=== PATIENT | male | born 1975 | race American Indian/Alaskan Native ===

== ENCOUNTER 2020-01-07 21:36 | Emergency (ER) | payer SELFPAY ==
[2020-01-07] MEDS ORDERED: ZIPRASIDONE MESYLATE 20 MG VIAL IM ONE ×2 (21:48)
[2020-01-07] MEDS ORDERED: SODIUM CHLORIDE 0.9% 1000 ML 1,000 ML IV ONE (21:49)
--- NOTE | 2020-01-07 21:50 | Emergency Department Report ---
<NADINE ZEE - Last Filed: 01/08/20 05:18> ED Psych HPI - General Chief Complaint: Altered Mental Status Stated Complaint: POSS DRUG OVERDOSE Time Seen by Provider: 01/07/20 21:42 Source: EMS Mode of arrival: Stretcher Limitations: No Limitations - History of Present Illness Initial Comments: 44-year-old male presents to the hospital with complaints of acute psychosis and methamphetamine abuse. Patient admits to swallowing methamphetamine today. Police Department responded to the home 8 times today due to calls from the patient. Patient was having paranoid delusions and hallucinations that people were trying to kill him and therefore was calling the police repeatedly. On the eighth call police called EMS to transport patient to the hospital. Patient is agitated, restless, having hallucinations. He is oriented x 3. He denies medical problems or prescribed medications. pt given Geodon 20mg IM shortly after triage due to amphetamine induced psychosis - Related Data Allergies Allergy/AdvReac Type Severity Reaction Status Date / Time No Known Allergies Allergy Verified 01/07/20 21:53 ED Review of Systems Comment: All other systems reviewed and negative ED Physical Exam - General Limitations: Altered Mental Status - Other Other exam information: General: Agitated Head: Atraumatic Eyes: normal appearance ENT: Moist mucous membranes Neck: Normal appearance, no midline tenderness Chest: Clear to auscultation bilaterally CV: Tachycardic regular rhythm Abdomen: Soft, normal bowel sounds, nontender, nondistended, no rebound or guarding Back: Normal inspection Extremity: Normal inspection, full range of motion Neuro: Alert O x 3, 5/5 upper lower extremity strength, speech clear, sensation grossly intact Psych: Agitated, psychotic Skin: No rash ED Course - Reevaluation(s) Reevaluation #1: 01/08/20 04:42 Patient is more calm in the ER after Geodon at this time. However, he is still having rapid speech and appears to still be having some hallucinations. Patient on continue psychiatric hold pending mental health evaluation in the morning. Patient is medically cleared for psychiatric admission ED Medical Decision Making - Lab Data Result diagrams: 01/07/20 22:07 01/08/20 04:46 Lab Results 01/07/20 01/07/20 01/07/20 Range/Units 22:07 22:07 22:07 WBC 7.5 (4.5-11.0) K/mm3 RBC 4.33 (3.65-5.03) M/mm3 Hgb 14.4 (11.8-15.2) gm/dl Hct 41.4 (35.5-45.6) % MCV 96 H (84-94) fl MCH 33 H (28-32) pg MCHC 35 H (32-34) % RDW 13.8 (13.2-15.2) % Plt Count 333 (140-440) K/mm3 Lymph % (Auto) 15.7 (13.4-35.0) % [place] % (Auto) 7.6 H (0.0-7.3) % Eos % (Auto) 2.0 (0.0-4.3) % Baso % (Auto) 0.9 (0.0-1.8) % Lymph # 1.2 (1.2-5.4) K/mm3 [place] # 0.6 (0.0-0.8) K/mm3 Eos # 0.2 (0.0-0.4) K/mm3 Baso # 0.1 (0.0-0.1) K/mm3 Seg Neutrophils % 73.8 H (40.0-70.0) % Seg Neutrophils # 5.5 (1.8-7.7) K/mm3 Sodium 137 (137-145) mmol/L Potassium 3.9 (3.6-5.0) mmol/L Chloride 99.4 (98-107) mmol/L Carbon Dioxide 14 L (22-30) mmol/L Anion Gap 28 mmol/L BUN 5 L (9-20) mg/dL Creatinine 0.9 (0.8-1.5) mg/dL Estimated GFR > 60 ml/min BUN/Creatinine Ratio 6 % Glucose 101 H (75-100) mg/dL Calcium 9.0 (8.4-10.2) mg/dL Total Creatine Kinase (55-170) units/L Urine Color (Yellow) Urine Turbidity (Clear) Urine pH (5.0-7.0) Ur Specific [place] (1.003-1.030) Urine Protein (Negative) mg/dL Urine Glucose (UA) (Negative) mg/dL Urine Ketones (Negative) mg/dL Urine Blood (Negative) Urine Nitrite (Negative) Urine Bilirubin (Negative) Urine Urobilinogen (<2.0) mg/dL Ur Leukocyte Esterase (Negative) Urine WBC (Auto) (0.0-6.0) /HPF Urine RBC (Auto) (0.0-6.0) /HPF Urine Mucus /HPF Salicylates < 0.3 L (2.8-20.0) mg/dL Urine Opiates Screen Urine Methadone Screen Acetaminophen (10.0-30.0) ug/mL Ur Barbiturates Screen Ur Phencyclidine Scrn Ur Amphetamines Screen U Benzodiazepines Scrn Urine Cocaine Screen U Marijuana (THC) Screen Drugs of Abuse Note Plasma/Serum Alcohol (0-0.07) % 01/07/20 01/07/20 01/07/20 Range/Units 22:07 22:07 22:07 WBC (4.5-11.0) K/mm3 RBC (3.65-5.03) M/mm3 Hgb (11.8-15.2) gm/dl Hct (35.5-45.6) % MCV (84-94) fl MCH (28-32) pg MCHC (32-34) % RDW (13.2-15.2) % Plt Count (140-440) K/mm3 Lymph % (Auto) (13.4-35.0) % [place] % (Auto) (0.0-7.3) % Eos % (Auto) (0.0-4.3) % Baso % (Auto) (0.0-1.8) % Lymph # (1.2-5.4) K/mm3 [place] # (0.0-0.8) K/mm3 Eos # (0.0-0.4) K/mm3 Baso # (0.0-0.1) K/mm3 Seg Neutrophils % (40.0-70.0) % Seg Neutrophils # (1.8-7.7) K/mm3 Sodium (137-145) mmol/L Potassium (3.6-5.0) mmol/L Chloride (98-107) mmol/L Carbon Dioxide (22-30) mmol/L Anion Gap mmol/L BUN (9-20) mg/dL Creatinine (0.8-1.5) mg/dL Estimated GFR ml/min BUN/Creatinine Ratio % Glucose (75-100) mg/dL Calcium (8.4-10.2) mg/dL Total Creatine Kinase 358 H (55-170) units/L Urine Color (Yellow) Urine Turbidity (Clear) Urine pH (5.0-7.0) Ur Specific [place] (1.003-1.030) Urine Protein (Negative) mg/dL Urine Glucose (UA) (Negative) mg/dL Urine Ketones (Negative) mg/dL Urine Blood (Negative) Urine Nitrite (Negative) Urine Bilirubin (Negative) Urine Urobilinogen (<2.0) mg/dL Ur Leukocyte Esterase (Negative) Urine WBC (Auto) (0.0-6.0) /HPF Urine RBC (Auto) (0.0-6.0) /HPF Urine Mucus /HPF Salicylates (2.8-20.0) mg/dL Urine Opiates Screen Urine Methadone Screen Acetaminophen < 5.0 L (10.0-30.0) ug/mL Ur Barbiturates Screen Ur Phencyclidine Scrn Ur Amphetamines Screen U Benzodiazepines Scrn Urine Cocaine Screen U Marijuana (THC) Screen Drugs of Abuse Note Plasma/Serum Alcohol 0.02 (0-0.07) % 01/07/20 01/07/20 01/08/20 Range/Units 22:26 22:26 04:46 WBC (4.5-11.0) K/mm3 RBC (3.65-5.03) M/mm3 Hgb (11.8-15.2) gm/dl Hct (35.5-45.6) % MCV (84-94) fl MCH (28-32) pg MCHC (32-34) % RDW (13.2-15.2) % Plt Count (140-440) K/mm3 Lymph % (Auto) (13.4-35.0) % [place] % (Auto) (0.0-7.3) % Eos % (Auto) (0.0-4.3) % Baso % (Auto) (0.0-1.8) % Lymph # (1.2-5.4) K/mm3 [place] # (0.0-0.8) K/mm3 Eos # (0.0-0.4) K/mm3 Baso # (0.0-0.1) K/mm3 Seg Neutrophils % (40.0-70.0) % Seg Neutrophils # (1.8-7.7) K/mm3 Sodium 139 (137-145) mmol/L Potassium 4.7 D (3.6-5.0) mmol/L Chloride 105.2 (98-107) mmol/L Carbon Dioxide 23 D (22-30) mmol/L Anion Gap 16 mmol/L BUN 5 L (9-20) mg/dL Creatinine 0.7 L (0.8-1.5) mg/dL Estimated GFR > 60 ml/min BUN/Creatinine Ratio 7 % Glucose 105 H (75-100) mg/dL Calcium 9.5 (8.4-10.2) mg/dL Total Creatine Kinase (55-170) units/L Urine Color Straw (Yellow) Urine Turbidity Clear (Clear) Urine pH 6.0 (5.0-7.0) Ur Specific [place] 1.006 (1.003-1.030) Urine Protein <15 mg/dl (Negative) mg/dL Urine Glucose (UA) Neg (Negative) mg/dL Urine Ketones Tr (Negative) mg/dL Urine Blood Neg (Negative) Urine Nitrite Neg (Negative) Urine Bilirubin Neg (Negative) Urine Urobilinogen < 2.0 (<2.0) mg/dL Ur Leukocyte Esterase Neg (Negative) Urine WBC (Auto) < 1.0 (0.0-6.0) /HPF Urine RBC (Auto) 2.0 (0.0-6.0) /HPF Urine Mucus Few /HPF Salicylates (2.8-20.0) mg/dL Urine Opiates Screen Presumptive negative Urine Methadone Screen Presumptive negative Acetaminophen (10.0-30.0) ug/mL Ur Barbiturates Screen Presumptive negative Ur Phencyclidine Scrn Presumptive negative Ur Amphetamines Screen Presumptive positive U Benzodiazepines Scrn Presumptive negative Urine Cocaine Screen Presumptive negative U Marijuana (THC) Screen Presumptive negative Drugs of Abuse Note Disclamer Plasma/Serum Alcohol (0-0.07) % - EKG Data -: EKG Interpreted by Wy EKG shows normal: sinus rhythm, QRS complexes (lvh), ST-T waves (no stemi) Rate: normal (72), tachycardia - Radiology Data Radiology results: report reviewed CHEST 1 VIEW 01/07/2020 9:08 PM INDICATION / CLINICAL INFORMATION: Medical Clearance Psych. COMPARISON: None available. FINDINGS: SUPPORT DEVICES: None. HEART / MEDIASTINUM: No significant abnormality. LUNGS / PLEURA: No significant pulmonary or pleural abnormality. No pneumothorax. ADDITIONAL FINDINGS: No significant additional findings. IMPRESSION: 1. No acute findings. - Medical Decision Making Patient presented with agitation, psychosis, paranoid delusions with methamphetamine use. Patient's vital signs and mental status have improved somewhat with Geodon however, he is still exhibiting psychotic symptoms but is more calm and cooperative. Mild anion gap acidosis noted on initial BMP improved with time and 1 L of IV fluids. Patient is medically clear for inpatient psychiatric admission or discharge if deemed medically stable by mental health providers. Pt on psych hold - Differential Diagnosis Substance abuse, psychosis Critical Care Time: No ED Disposition Clinical Impression: Amphetamine abuse, Medical clearance for psychiatric admission Psychosis Qualifiers: Psychosis type: unspecified psychosis type Qualified Code(s): F29 - Unspecified psychosis not due to a substance or known physiological condition Disposition: -01 TO HOME OR SELFCARE Is pt being admited?: No Does the pt Need Aspirin: No Condition: Stable Instructions: Methamphetamine Abuse (ED) Additional Instructions: Follow-up with your doctor or doctor/clinic provided. Return if symptoms worsen as indicated by your discharge instructions. Referrals: [facility] <CLEMENTINE ORR S - Last Filed: 01/09/20 06:11> ED Review of Systems ROS: Stated complaint: POSS DRUG OVERDOSE Other details as noted in HPI ED Course Vital Signs 01/07/20 01/07/20 01/07/20 21:44 21:45 21:46 Temperature 98.6 F Pulse Rate 120 H 118 H Respiratory 20 32 H 24 Rate Blood Pressure 165/88 161/91 Blood Pressure [Right] O2 Sat by Pulse 100 100 Oximetry 01/07/20 01/07/20 01/07/20 21:51 22:01 22:15 Temperature Pulse Rate 116 H 113 H 104 H Respiratory 25 H 28 H 23 Rate Blood Pressure 144/75 167/83 Blood Pressure 113/75 [Right] O2 Sat by Pulse 98 100 98 Oximetry 01/07/20 01/07/20 01/07/20 22:30 22:45 23:00 Temperature Pulse Rate 101 H 102 H 97 H Respiratory 25 H 19 18 Rate Blood Pressure 173/80 123/76 132/86 Blood Pressure [Right] O2 Sat by Pulse 97 94 93 Oximetry 01/07/20 01/07/20 01/07/20 23:15 23:30 23:45 Temperature Pulse Rate 126 H 103 H 95 H Respiratory 20 17 19 Rate Blood Pressure 144/108 120/82 112/74 Blood Pressure [Right] O2 Sat by Pulse 98 96 94 Oximetry 01/07/20 01/08/20 01/08/20 23:59 00:00 00:15 Temperature Pulse Rate 88 88 91 H Respiratory 20 19 17 Rate Blood Pressure 112/74 128/74 112/62 Blood Pressure [Right] O2 Sat by Pulse 94 94 Oximetry 01/08/20 01/08/20 01/08/20 00:30 00:45 01:00 Temperature Pulse Rate 97 H 88 90 Respiratory 17 20 19 Rate Blood Pressure 119/67 118/65 110/65 Blood Pressure [Right] O2 Sat by Pulse 92 94 92 Oximetry 01/08/20 01/08/20 01/08/20 01:15 01:30 01:45 Temperature Pulse Rate 94 H 87 85 Respiratory 18 17 18 Rate Blood Pressure 104/53 101/61 111/65 Blood Pressure [Right] O2 Sat by Pulse 90 94 Oximetry 01/08/20 01/08/20 01/08/20 02:15 02:30 02:45 Temperature Pulse Rate 90 92 H 116 H Respiratory 21 17 20 Rate Blood Pressure 120/66 129/68 115/75 Blood Pressure [Right] O2 Sat by Pulse 96 97 99 Oximetry 01/08/20 01/08/20 01/08/20 03:00 03:15 03:30 Temperature Pulse Rate 78 82 89 Respiratory 19 20 19 Rate Blood Pressure 145/86 137/85 137/84 Blood Pressure [Right] O2 Sat by Pulse 99 100 98 Oximetry 01/08/20 01/08/20 01/08/20 03:45 04:15 04:45 Temperature Pulse Rate 88 85 103 H Respiratory 20 15 17 Rate Blood Pressure 139/79 146/86 135/98 Blood Pressure [Right] O2 Sat by Pulse 99 98 Oximetry 01/08/20 01/08/20 01/08/20 05:00 05:15 05:30 Temperature Pulse Rate 76 76 78 Respiratory 11 L 17 20 Rate Blood Pressure 147/92 148/92 124/71 Blood Pressure [Right] O2 Sat by Pulse 100 100 99 Oximetry 01/08/20 01/08/20 01/08/20 05:45 06:00 06:15 Temperature Pulse Rate 80 77 77 Respiratory 23 21 27 H Rate Blood Pressure 123/74 123/79 128/78 Blood Pressure [Right] O2 Sat by Pulse 98 100 99 Oximetry 01/08/20 01/08/20 01/08/20 06:31 06:41 06:45 Temperature Pulse Rate 68 77 Respiratory 26 H 16 16 Rate Blood Pressure 149/96 151/87 Blood Pressure [Right] O2 Sat by Pulse 99 100 Oximetry 01/08/20 01/08/20 01/08/20 08:56 09:34 12:02 Temperature 98 F 97.8 F Pulse Rate 94 H 100 H 80 Respiratory 18 20 16 Rate Blood Pressure Blood Pressure 145/99 132/94 127/76 [Right] O2 Sat by Pulse 100 100 100 Oximetry ED Medical Decision Making - Lab Data Result diagrams: 01/07/20 22:07 01/08/20 04:46 - EKG Data EKG shows normal: QRS complexes - EKG Data Interpretation: other (Repeat EKG at 9:29 AM shows sinus rhythm, normal axis, normal intervals, LVH. No ST elevation SD.) - Radiology Data CT head/brain wo con INDICATION / CLINICAL INFORMATION: dizziness. TECHNIQUE: All CT scans at this location are performed using CT dose reduction for ALARA by means of automated exposure control. COMPARISON: None available. FINDINGS: No acute intracranial hemorrhage. No abnormal extra-axial fluid collection. The ventricular system and basilar cisterns are normal. No evidence of mass effect or territorial infarction. Visualized orbits and paranasal sinuses are normal No osseous abnormality. IMPRESSION: 1. No acute intracranial abnormality. - Medical Decision Making I was approached by the psychiatric nurse to evaluate this patient as he was complaining of feeling lightheaded/dizzy. He did not appear to have any focal, motor or sensory deficits and cranial nerves were intact. A EKG was ordered that shows LVH but no signs of ST elevation SD or dysrhythmia. A TSH and troponin were ordered that both came back within normal limits. The patient had a CT scan of the head without contrast that did not show any bleed, shift, mass, ischemia, or any other acute process. Patient has been seen multiple times ambulatory in the emergency department. He is currently awaiting a psychiatric evaluation. Critical care attestation.: If time is entered above; I have spent that time in minutes in the direct care of this critically ill patient, excluding procedure time. ED Disposition Is pt being admited?: No
--- NOTE | 2020-01-07 21:50 | Emergency Department Report ---
ED Altered Mental Status HPI - General Chief Complaint: Altered Mental Status Stated Complaint: POSS DRUG OVERDOSE Time Seen by Provider: 01/07/20 21:42 Source: EMS Mode of arrival: Stretcher Limitations: Altered Mental Status - Related Data Allergies Allergy/AdvReac Type Severity Reaction Status Date / Time No Known Allergies Allergy Unverified 01/07/20 21:45 ED Review of Systems ROS: Stated complaint: POSS DRUG OVERDOSE Other details as noted in HPI ED Physical Exam - General Limitations: Altered Mental Status ED Course Vital Signs 01/07/20 21:45 Pulse Rate 120 H Respiratory 32 H Rate Blood Pressure 165/88 O2 Sat by Pulse 100 Oximetry Critical care attestation.: If time is entered above; I have spent that time in minutes in the direct care of this critically ill patient, excluding procedure time. ED Disposition Condition: Stable
--- NOTE | 2020-01-07 22:14 | XRay Report ---
CHEST 1 VIEW 01/07/2020 9:08 PM INDICATION / CLINICAL INFORMATION: Medical Clearance Psych. COMPARISON: None available. FINDINGS: SUPPORT DEVICES: None. HEART / MEDIASTINUM: No significant abnormality. LUNGS / PLEURA: No significant pulmonary or pleural abnormality. No pneumothorax. ADDITIONAL FINDINGS: No significant additional findings. IMPRESSION: 1. No acute findings. Signer Name: Ayo Esqueda MD Signed: 01/07/2020 10:09 PM Workstation Name: [id number]
[2020-01-07 22:23] LABS: Basophils # (Auto) 0.1 K/mm3 (0.0-0.1); Basophils % (Auto) 0.9 % (0.0-1.8); Eosinophils # (Auto) 0.2 K/mm3 (0.0-0.4); Hematocrit 41.4 % (35.5-45.6); Hemoglobin 14.4 gm/dl (11.8-15.2); Lymphocytes # (Auto) 1.2 K/mm3 (1.2-5.4); Lymphocytes % (Auto) 15.7 % (13.4-35.0); Mean Corpuscular HGB Conc 35 % (32-34); Mean Corpuscular Volume 96 fl (84-94); Monocytes # (Auto) 0.6 K/mm3 (0.0-0.8); Monocytes % (Auto) 7.6 % (0.0-7.3); Platelet Count 333 K/mm3 (140-440); Red Blood Count 4.33 M/mm3 (3.65-5.03); Red Cell Distribution Width 13.8 % (13.2-15.2)
[2020-01-07 22:38] LABS: Bilirubin,Urine NEG (Negative); Blood,Urine NEG (Negative); Color,Urine Straw (Yellow); Mucus,Urine FEW /HPF; Protein,Urine <15 mg/dL mg/dL (Negative); Urobilinogen,Urine < 2.0 mg/dL (<2.0); WBC,Urine < 1.0 /HPF (0.0-6.0)
[2020-01-07 22:38] LABS: BUN/Creatinine Ratio 6; Blood Urea Nitrogen 5 mg/dL (9-20); Hemolysis Index 8
[2020-01-07 22:45] LABS: Benzodiazepines Screen,Urine PRESUMPTIVE NEGATIVE; Cannabinoid Screen,Urine PRESUMPTIVE NEGATIVE; Cocaine Screen,Urine PRESUMPTIVE NEGATIVE; Methadone Screen,Urine PRESUMPTIVE NEGATIVE; Opiate Screen,Urine PRESUMPTIVE NEGATIVE
[2020-01-07 22:57] LABS: Amphetamine Screen,Urine PRESUMPTIVE POSITIVE
[2020-01-08 05:13] LABS: BUN/Creatinine Ratio 7; Blood Urea Nitrogen 5 mg/dL (9-20); Calcium 9.5 mg/dL (8.4-10.2); Hemolysis Index 28
--- NOTE | 2020-01-08 10:09 | Cat Scan Report ---
CT head/brain wo con INDICATION / CLINICAL INFORMATION: dizziness. TECHNIQUE: All CT scans at this location are performed using CT dose reduction for ALARA by means of automated e xposure control. COMPARISON: None available. FINDINGS: No acute intracranial hemorrhage. No abnormal extra-axial fluid collection. The ventricular system and basilar cisterns are normal. No evidence of mass effect or territorial infarction. Visualized orbits and paranasal sinuses are normal No osseous abnormality. IMPRESSION: 1. No acute intracranial abnormality. Signer Name: Dwight Haley MD Signed: 01/08/2020 10:04 AM Workstation Name: [email or web address]
[2020-01-08 12:02] VITALS: BP 127/76
== END 2020-01-08 19:40 | disposition home or self-care (01) ==
LOC: ED 21:36 → EEVIPCON 21:36 → ED 01-08 19:40
DX: F29 Unspecified psychosis not due to a substance or known physiological condition (principal); F15.10 Other stimulant abuse, uncomplicated; F22 Delusional disorders
CPT/HCPCS: 36415; 70450; 71045; 80048; 80307; 81001; 82550; 82962; 83735; 84443; 84484; 85025; 93005; 96372; 99285; J3486; J7030; 80320; G0480

== ENCOUNTER 2020-01-09 02:17 | Emergency (ER) | payer SELFPAY ==
[2020-01-09 02:33] VITALS: BP 126/69
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
== END 2020-01-09 03:54 | disposition home or self-care (01) ==
LOC: ED 02:17 → EEVIPCON 02:17 → ED 03:54
DX: F15.10 Other stimulant abuse, uncomplicated (principal); F41.9 Anxiety disorder, unspecified